=== PATIENT | female | born 1975 | race Caucasian/White ===

== ENCOUNTER 2020-09-22 06:42 | Day surgery (SDC) | payer MEDICAID ==
[~2020-09-22] VITALS: Ht 162.6 cm; Wt 110.7 kg
[2020-09-22 07:56] LABS: BASOPHILS % 0.9 % (0.0-2.0); EOSINOPHILS % 3.2 % (0.0-5.0); HEMATOCRIT. 35.3 % (36.0-48.0); LYMPHOCYTES % 15.2 % (20.0-50.0); MEAN CORPUSCULAR VOLUME 88.5 fL (81.0-99.0); MEAN PLATELET VOLUME 7.9 fl (7.4-10.4); NEUTROPHILS % 73.7 % (40.0-76.0); PLATELET 448 x1000/uL (130-400); RED BLOOD CELL COUNT 3.99 mill/uL (4.2-5.4); RED CELL DISTRIBUTION WIDTH 15.1 % (11.6-14.6)
[2020-09-22 08:02] LABS: INR 0.9; PARTIAL THROMBOPLASTIN TIME 28.5 sec (23.4-31.0)
[2020-09-22 08:04] LABS: CHLORIDE 105 mEq/L (98-107)
[2020-09-22 08:07] LABS: CLARITY URINE CLEAR (CLEAR); COLOR URINE YELLOW (YELLOW); KETONES URINE NEGATIVE (NEGATIVE); LEUKOCYTE ESTERASE URINE NEGATIVE (NEGATIVE); NITRITE URINE NEGATIVE (NEGATIVE); OCCULT BLOOD URINE TRACE (NEGATIVE); PROTEIN URINE TRACE (NEGATIVE); SPECIFIC GRAVITY URINE 1.017 (1.005-1.030); UROBILINOGEN URINE 0.2 E.U./dL (0.2-1.0)
[2020-09-22 08:14] LABS: UCG SCREEN NEGATIVE
[2020-09-22] MEDS ORDERED: LACTATED RINGERS 1,000 ML IV SCH (08:45)
[2020-09-22] MEDS ORDERED: VASOPRESSIN 20 UNIT/ML 1ML ONE (09:02)
[2020-09-22] MEDS ORDERED: BUPIVACAINE HCL 0.5% (5MG/ML) 50ML ONE (09:02)
[2020-09-22] MEDS ORDERED: SKIN ADHESIVE 0.7 GM EA TOP ONE (09:02)
[2020-09-22] MEDS ORDERED: ROPIVACAINE HCL 10MG/ML 20 ML VIAL EPI ONE (11:49)
[2020-09-22] MEDS ORDERED: FENTANYL CITRATE/PF 50MCG/ML 2ML VIAL ONE (12:01)
[2020-09-22] MEDS ORDERED: MIDAZOLAM HCL 2 MG/2 ML VIAL ONE (12:01)
[2020-09-22] MEDS ORDERED: LIDOCAINE HCL/PF 1% 10 MG/ML 5ML VIAL ONE (12:02)
[2020-09-22] MEDS ORDERED: SUCCINYLCHOLINE CHLORIDE 200MG/10ML IV ONE (12:02)
[2020-09-22] MEDS ORDERED: PROPOFOL 200MG/20ML VIAL IV ONE (12:02)
[2020-09-22] MEDS ORDERED: ROCURONIUM BROMIDE 10MG/ML VIAL 5ML IV ONE ×2 (12:02→13:17)
[2020-09-22] MEDS ORDERED: EPHEDRINE SULFATE 50MG/ML VIAL ONE (12:09)
[2020-09-22] MEDS ORDERED: ROPIVACAINE HCL 10MG/ML 20 ML VIAL EPI NR (12:15)
[2020-09-22] MEDS ORDERED: BUPIVACAINE HCL 0.5% (5MG/ML) 50ML IR NR (12:15)
[2020-09-22] MEDS ORDERED: FERR325T6 PO (12:19)
[2020-09-22] MEDS ORDERED: CYAN-50 PO (12:19)
[2020-09-22] MEDS ORDERED: METF-416 PO (12:19)
[2020-09-22] MEDS ORDERED: ATOR10TA69 PO (12:19)
[2020-09-22] MEDS ORDERED: CHOL200077 PO (12:19)
[2020-09-22] MEDS ORDERED: DULA0.75 SQ (12:19)
[2020-09-22] MEDS ORDERED: LISI-604 PO (12:19)
[2020-09-22] MEDS ORDERED: CHLO25TA2 PO (12:19)
[2020-09-22] MEDS ORDERED: CEFAZOLIN SODIUM 1000MG/VIAL ONE (13:08)
[2020-09-22] MEDS ORDERED: DEXAMETHASONE 4MG/ML 1ML VIAL ONE (13:53)
[2020-09-22] MEDS ORDERED: ONDANSETRON HCL 4MG/2ML INJ ONE (13:56)
[2020-09-22] MEDS ORDERED: KETOROLAC 30MG/ML VIAL ONE (15:01)
[2020-09-22] MEDS ORDERED: NEOSTIGMINE METHYLSULFATE 1MG/ML 10 ML VIAL ONE (15:08)
[2020-09-22] MEDS ORDERED: GLYCOPYRROLATE 0.2 MG/ML 2ML VIAL ONE (15:09)
[2020-09-22] MEDS ORDERED: ESMOLOL HCL 10MG/ML 10ML VIAL IV ONE (15:13)
[2020-09-22] MEDS ORDERED: HYDRALAZINE 20MG/ML VIAL ONE (15:24)
[2020-09-22] MEDS: HYDROMORPHONE HCL/PF 2MG/ML CPJ IV PRN ×4 (16:05→16:40)
[2020-09-22] MEDS ORDERED: HYDROCODONE/ACETAMINOPHEN 5/325MG TABLET PO PRN (16:30)
[2020-09-22] MEDS ORDERED: ONDANSETRON HCL 4MG/2ML INJ IV PRN ×2 (16:45→17:00)
[2020-09-22 18:16] VITALS: BP 149/84
== END 2020-09-22 18:25 | disposition home or self-care (01) ==
LOC: OR 06:42
PROVIDERS: ATTEND Obstetrics & Gynecology
DX: D25.9 Leiomyoma of uterus, unspecified (principal); N93.8 Other specified abnormal uterine and vaginal bleeding; N72 Inflammatory disease of cervix uteri; I10 Essential (primary) hypertension; E11.9 Type 2 diabetes mellitus without complications; E78.00 Pure hypercholesterolemia, unspecified; Z79.84 Long term (current) use of oral hypoglycemic drugs; Z79.899 Other long term (current) drug therapy; Z98.890 Other specified postprocedural states
CPT/HCPCS: 36415; 58552; 80048; 81003; 81025; 82962; 85025; 85610; 85730; 86850; 86900; 86901; 88307; C1725; J0330; J0360; J0690; J1100; J1170; J1885; J2250; J2405; J2704; J2710; J2795; J3010; J3490; S2900

== ENCOUNTER → 2020-09-22 | Outpatient (CLI) | payer MEDICAID ==
[~2020-09-22] MED LIST: ATOR10TA69 PO; CHLO25TA2 PO; CHOL200077 PO; CYAN-50 PO; DULA0.75 SQ; FERR325T6 PO; LISI-604 PO; METF-416 PO
== END | disposition home or self-care (01) ==
LOC: LAB 06:32
PROVIDERS: ATTEND Obstetrics & Gynecology
DX: Z01.812 Encounter for preprocedural laboratory examination (principal); Z20.828 Contact with and (suspected) exposure to other viral communicable diseases
CPT/HCPCS: 87426